=== PATIENT | female | born 1955 | race Caucasian/White ===

== ENCOUNTER 2022-03-19 12:19 | Emergency (ER) | payer OTHER, MEDICAID ==
[~2022-03-19] VITALS: Ht 160 cm; Wt 83.5 kg
[2022-03-19 12:23] VITALS: BP 135/64
--- NOTE | 2022-03-19 12:29 | NUR ---
PATIENT AMBULATED TO BED 12.
[2022-03-19] MEDS ORDERED: LIDOCAINE 5% 1 EA PATCH TP SCH (12:40)
[2022-03-19] MEDS ORDERED: KETOROLAC 30 MG/ML VIAL IM ONE (12:40)
--- NOTE | 2022-03-19 13:30 | NUR ---
66YO FEMALE PT C/O L RIB AND CHEST PAIN XYESTERDAY. SHARP PAIN ON MOVEMENT OR DEEP BREATHING. STATES FALLING ONTO COUNTER AT HOME. PRESENTS WITH MILD BRUISING ON L RIB, TENDER TO TOUCH. DENIES INJURY TO HEAD, N/V/D, SOB , FEVER OR CHILLS. STATES MILD RELIEF AFTER TAKING NORCO. PT AAOX4, RSPIRARTIONS EVEN AND UNLABORED HX: HYPOTHYROID, CHRONIC NERVE PAIN ALLERGIES" CODEINE, ERYTHROMYCIN
[2022-03-19] MEDS ORDERED: IBUP-2213 PO (14:09)
[2022-03-19] MEDS ORDERED: LID5T TP (14:09)
[2022-03-19 14:20] VITALS: BP 138/62
--- NOTE | 2022-03-19 14:20 | NUR ---
Patient discharged with v/s stable. Written and verbal after care instructions FOR RIB FRACTURE given and explained. Patient alert, oriented and verbalized understanding of instructions. Ambulatory with steady gait. All questions addressed prior to discharge. ID band removed. Patient advised to follow up with PMD. Rx of IBUPROFEN AND LIDOCAINE given. Opportunity to ask questions provided and answered.
--- NOTE | 2022-03-19 14:36 | NUR ---
The patient's care was reviewed and supervised by Payton Paniagua, RN, RN.
== END 2022-03-19 14:20 | disposition home or self-care (01) ==
LOC: MED 12:19
DX: S22.32XA Fracture of one rib, left side, initial encounter for closed fracture (principal); Z88.5 Allergy status to narcotic agent; W18.30XA Fall on same level, unspecified, initial encounter; Y93.89 Activity, other specified; Y92.89 Other specified places as the place of occurrence of the external cause; Y99.8 Other external cause status
CPT/HCPCS: 71101; 93005; 96372; 99283; J1885

== ENCOUNTER 2022-04-03 12:50 | Emergency (ER) | payer OTHER, MEDICAID ==
[~2022-04-03] VITALS: Ht 160 cm; Wt 84.8 kg
[~2022-04-03 12:50] MED LIST: IBUP-2213 PO; LID5T TP
[2022-04-03 12:54] VITALS: BP 131/87
[2022-04-03] MEDS ORDERED: TRAM50TA3 PO (14:46)
[2022-04-03 14:55] VITALS: BP 131/87
== END 2022-04-03 14:55 | disposition home or self-care (01) ==
LOC: MED 12:50
DX: S20.211A Contusion of right front wall of thorax, initial encounter (principal); Z79.1 Long term (current) use of non-steroidal anti-inflammatories (NSAID); W18.30XA Fall on same level, unspecified, initial encounter; Y93.89 Activity, other specified; Y92.89 Other specified places as the place of occurrence of the external cause; Y99.8 Other external cause status
CPT/HCPCS: 71101; 99283